=== PATIENT | male | born 1965 | race Caucasian/White ===

== ENCOUNTER 2019-07-15 11:40 | Emergency (ER) | payer BC, OTHER ==
[2019-07-15] MEDS ORDERED: MAG HYDROX/AL HYDROX/SIMETH SUSP 30 ML UDCUP PO ONE (11:58)
[2019-07-15] MEDS ORDERED: LIDOCAINE 2% VISCOUS SOLN 20 ML UDCUP PO ONE (11:58)
[2019-07-15] MEDS ORDERED: ASPIRIN 81 MG TABLET, CHEWABLE PO ONE (11:58)
--- NOTE | 2019-07-15 12:00 | ER Document Report ---
ED Medical Screen (RME) - General Chief Complaint: Chest Pain Stated Complaint: CHEST PAIN Time Seen by Provider: 07/15/19 11:55 Mode of Arrival: Ambulatory Information source: Patient Notes: Patient presents complaining of chest and epigastric pain that started yesterday evening around 10 PM. Patient complains of occasional difficulty breathing as well as some belching. Patient denies any nausea or vomiting. Patient does report a history of high cholesterol. I have greeted and performed a rapid initial assessment of this patient. A comprehensive ED assessment and evaluation of the patient, analysis of test results and completion of the medical decision making process will be conducted by additional ED providers. - Related Data Allergies/Adverse Reactions: No Known Allergies Allergy (Unverified 07/15/19 11:42) Physical Exam - Vital signs Vitals: Temp Pulse Resp BP Pulse Ox 97.8 F 72 16 148/83 H 98 07/15/19 11:50 07/15/19 11:50 07/15/19 11:50 07/15/19 11:50 07/15/19 11:50 - General Notes: Epigastric tenderness with palpation - Cardiovascular Rhythm: Regular Heart sounds: S1 appreciated, S2 appreciated Course - Vital Signs Vital signs: Temp Pulse Resp BP Pulse Ox 97.8 F 72 16 148/83 H 98 07/15/19 11:50 07/15/19 11:50 07/15/19 11:50 07/15/19 11:50 07/15/19 11:50
[2019-07-15 12:47] LABS: ABSOLUTE EOSINOPHILS # (AUTO) 0.2 10^3/uL (0.0-0.6); ABSOLUTE LYMPHOCYTES (AUTO) 1.6 10^3/uL (0.5-4.7); ABSOLUTE MONOCYTES (AUTO) 0.5 10^3/uL (0.1-1.4); ABSOLUTE NEUT (AUTO) 3.6 10^3/uL (1.7-8.2); BASOPHILS % (AUTO) 0.3 % (0-2); EOSINOPHILS % (AUTO) 4.2 % (0-6); HEMATOCRIT 43.6 % (37.9-51.0); HEMOGLOBIN 15.6 g/dL (13.5-17.0); LYMPHOCYTES % (AUTO) 26.6 % (13-45); MEAN CORPUSCULAR HEMOGLOBIN 32.2 pg (27.0-33.4); MEAN CORPUSCULAR HGB CONC 35.7 g/dL (32.0-36.0); MEAN CORPUSCULAR VOLUME 90 fl (80-97); MONOCYTES % (AUTO) 8.4 % (3-13); PLATELET COUNT 206 10^3/uL (150-450); RED BLOOD COUNT 4.84 10^6/uL (4.35-5.55); SEGMENTED NEUTROPHILS % (AUTO) 60.5 % (42-78); TOTAL CELLS COUNTED % (AUTO) 100 %
--- NOTE | 2019-07-15 12:57 | RADIOLOGY REPORT (SQ) ---
EXAM DESCRIPTION: CHEST 2 VIEWS COMPLETED DATE/TIME: 07/15/2019 12:46 pm REASON FOR STUDY: cp, epig pain COMPARISON: None. EXAM PARAMETERS: NUMBER OF VIEWS: two views TECHNIQUE: Digital Frontal and Lateral radiographic views of the chest acquired. RADIATION DOSE: NA LIMITATIONS: none FINDINGS: LUNGS AND PLEURA: No opacities, masses or pneumothorax. No pleural effusion. MEDIASTINUM AND HILAR STRUCTURES: No masses or contour abnormalities. HEART AND VASCULAR STRUCTURES: Heart normal size. No evidence for failure. BONES: No acute findings. HARDWARE: None in the chest. OTHER: No other significant finding. IMPRESSION: NO ACUTE RADIOGRAPHIC FINDING IN THE CHEST. TECHNICAL DOCUMENTATION: JOB ID: [id number] [employer]- All Rights Reserved Reading location - IP/workstation name: [email or web address]
[2019-07-15 13:05] LABS: ALBUMIN 4.9 g/dL (3.5-5.0); ALKALINE PHOSPHATASE 51 U/L (38-126); ANION GAP 12 (5-19); ASPARTATE AMINO TRANSFERASE 26 U/L (17-59); BILIRUBIN,DIRECT 0.2 mg/dL (0.0-0.4); BILIRUBIN,TOTAL 1.4 mg/dL (0.2-1.3); BLOOD UREA NITROGEN 13 mg/dL (7-20); CARBON DIOXIDE 24 mmol/L (22-30); CHLORIDE 104 mmol/L (98-107); GLUCOSE 103 mg/dL (75-110); POTASSIUM 4.2 mmol/L (3.6-5.0); TOTAL PROTEIN 7.6 g/dL (6.3-8.2)
[2019-07-15] MEDS ORDERED: NITROGLYCERIN 2% OINTMENT 1 GM PACKET TP ONE (15:14)
--- NOTE | 2019-07-15 17:49 | PDOC CONSULTATION ---
Consultation Consult Date: 07/15/19 Provider Consulted: ARGENIS GALO Consult reason:: Atypical chest pain History of Present Illness Admission Date/PCP: RICKEY LOREDO NP Patient complains of: atypical chest pain History of Present Illness: CARSON MEIER is a 53 year old male with a past medical history significant for hyperlipidemia, and daily cigar use who presented to the emergency department today with a complaint of atypical chest pain. The patient reports that he had sudden onset of epigastric abdominal discomfort, described as tightness, radiating to his back and associated with belching that began while at rest yesterday evening. He reports that the pain lasted approximately 30 minutes and began to massimo after taking an [id number] antacid medication. Patient reports that he slept well overnight without additional discomfort but while at work today symptoms reoccurred. Patient states that he was, again, sitting and at rest, though under emotional stress at work and the symptoms reoccurred. He reports that the pain was exactly the same as the previous night, epigastric, occasionally radiates to his back, and associated with belching. The patient does endorse anxiety with his discomfort; states that he thought today he may have been having a "panic attack." Patient reports that he immediately presented to the emergency department due to his discomfort. He states that the pain resolved following treatment with Nitroglycerin SL tab and a GI cocktail. He is currently pain free and interested in discharge to home. Past Medical History Cardiac Medical History: Reports: Hyperlipidema Denies: Coronary Artery Disease, Myocardial Infarction, Hypertension Pulmonary Medical History: Reports: None EENT Medical History: Reports: None Neurological Medical History: Reports: None Endocrine Medical History: Reports: None Renal/ Medical History: Reports: None Malignancy Medical History: Reports: None GI Medical History: Reports: Gastroesophageal Reflux Disease Musculoskeltal Medical History: Reports: None Skin Medical History: Reports: None Psychiatric Medical History: Reports: Tobacco Dependency Traumatic Medical History: Reports: None Hematology: Reports: None Infectious Medical History: Reports: None Past Surgical History Past Surgical History: Reports: Tonsillectomy Social History Information Source: Patient Lives with: Family Smoking Status: Current Every Day Smoker Cigars Per Day: 1 Frequency of Alcohol Use: Rare Hx Recreational Drug Use: No Drugs: None Hx Prescription Drug Abuse: No - Advance Directive Resuscitation Status: Full Code Family History Family History: DM, Hypertension Parental Family History Reviewed: Yes Children Family History Reviewed: Yes Sibling(s) Family History Reviewed.: Yes Medication/Allergy Allergies/Adverse Reactions: No Known Allergies Allergy (Unverified 07/15/19 11:42) Review of Systems Constitutional: ABSENT: chills, fever(s), headache(s), weight gain, weight loss Eyes: ABSENT: visual disturbances Ears: ABSENT: hearing changes Cardiovascular: PRESENT: as per HPI Respiratory: ABSENT: cough, hemoptysis Gastrointestinal: PRESENT: as per HPI, abdominal pain, heartburn. ABSENT: constipation, diarrhea, hematemesis, hematochezia, nausea, vomiting Genitourinary: ABSENT: dysuria, hematuria Musculoskeletal: ABSENT: joint swelling Integumentary: ABSENT: rash, wounds Neurological: ABSENT: abnormal gait, abnormal speech, confusion, dizziness, focal weakness, syncope Psychiatric: ABSENT: anxiety, depression, homidical ideation, suicidal ideation Endocrine: ABSENT: cold intolerance, heat intolerance, polydipsia, polyuria Hematologic/Lymphatic: ABSENT: easy bleeding, easy bruising Physical Exam Vital Signs: Temp Pulse Resp BP Pulse Ox 97.8 F 72 16 148/83 H 98 07/15/19 11:50 07/15/19 11:50 07/15/19 11:50 07/15/19 11:50 07/15/19 11:50 Intake & Output 07/14/19 07/15/19 07/16/19 06:59 06:59 06:59 Weight 77.4 kg General appearance: PRESENT: no acute distress, cooperative, well-developed, well-nourished Head exam: PRESENT: atraumatic, normocephalic Eye exam: PRESENT: conjunctiva pink, EOMI, PERRLA. ABSENT: scleral icterus Ear exam: PRESENT: normal external ear exam Mouth exam: PRESENT: moist, tongue midline Neck exam: ABSENT: carotid bruit, JVD, lymphadenopathy, thyromegaly Respiratory exam: PRESENT: clear to auscultation monique, symmetrical, unlabored. ABSENT: rales, rhonchi, wheezes Cardiovascular exam: PRESENT: RRR, +S1, +S2. ABSENT: diastolic murmur, rubs, systolic murmur Pulses: PRESENT: normal dorsalis pedis pul Vascular exam: PRESENT: normal capillary refill GI/Abdominal exam: PRESENT: normal bowel sounds, soft. ABSENT: distended, guarding, mass, organolmegaly, rebound, tenderness Rectal exam: PRESENT: deferred Extremities exam: PRESENT: full ROM. ABSENT: calf tenderness, clubbing, pedal edema Neurological exam: PRESENT: alert, awake, oriented to person, oriented to place, oriented to time, oriented to situation, CN II-XII grossly intact. ABSENT: motor sensory deficit Psychiatric exam: PRESENT: appropriate affect, normal mood. ABSENT: homicidal ideation, suicidal ideation Skin exam: PRESENT: dry, intact, warm. ABSENT: cyanosis, rash Results Laboratory Results: 07/15/19 12:25 07/15/19 12:25 07/15/19 07/15/19 12:25 12:25 WBC 6.0 RBC 4.84 Hgb 15.6 Hct 43.6 MCV 90 MCH 32.2 MCHC 35.7 RDW 13.0 Plt Count 206 Seg Neutrophils % 60.5 Lymphocytes % 26.6 Monocytes % 8.4 Eosinophils % 4.2 Basophils % 0.3 Absolute Neutrophils 3.6 Absolute Lymphocytes 1.6 Absolute Monocytes 0.5 Absolute Eosinophils 0.2 Absolute Basophils 0.0 Sodium 140.3 Potassium 4.2 Chloride 104 Carbon Dioxide 24 Anion Gap 12 BUN 13 Creatinine 0.87 Est GFR ( Amer) > 60 Est GFR (Non-Af Amer) > 60 Glucose 103 Calcium 10.0 Total Bilirubin 1.4 H AST 26 Alkaline Phosphatase 51 Total Protein 7.6 Albumin 4.9 Lipase 56.6 07/15/19 07/15/19 12:25 15:15 Troponin I < 0.012 < 0.012 Impressions: Chest X-Ray 07/15/19 11:58 IMPRESSION: NO ACUTE RADIOGRAPHIC FINDING IN THE CHEST. Assessment and Plan - Diagnosis (1) Atypical chest pain Is this a current diagnosis for this admission?: Yes Plan: Patient presented to the emergency department with atypical chest discomfort described as epigastric tightness, occasionally radiating to his back, associated with dyspepsia and belching that was relieved by OTC antacid medication. Chest x-ray is benign. EKG demonstrates normal sinus rhythm without ischemic changes. Troponins are negative x2. Heart score of 3 (Age, HLD, Tobacco, Family Hx). Discussed with patient that chest pain rule out procedure includes obtaining 3 negative troponins followed by stress testing to determine need for cardiac catheterization. Patient was advised that stress testing is not available at our facility until Thursday and that patient's similar to him with a low heart scores and two negative troponins are typically discharged to home with cardiology follow-up to schedule outpatient stress testing. The patient understood and was satisfied with this recommendation. The patient was encouraged to return to the emergency department as needed for recurrent chest pain, especially if worsened, persistent, increased by activity or with associated symptoms of shortness of breath, diaphoresis, nausea, etc. H e was assured that he would not be treated poorly of if he re-presented for concerning chest pain symptoms. Recommend discharge to home with referral to cardiology for outpatient stress testing. (2) Epigastric abdominal pain Is this a current diagnosis for this admission?: Yes Plan: Patient endorses epigastric abdominal discomfort, described as tightness, occasionally radiating to his back and associated with dyspepsia and belching. Patient reports that his symptoms resolved last night after taking an [id number] antacid and again today after presenting to the emergency department when he was provided both a sublingual nitroglycerin tab and GI cocktail. He denies history of gallstones or pancreatitis. Denies frequent alcohol use. WBCs are normal and abdomen is benign on exam. Total bilirubin is elevated to 1.4 but all other LFTs are normal. Lipase 56.6. Would recommend considering abdominal ultrasound to evaluate for gallbladder disease as potential cause of the patient's epigastric and atypical chest disc omfort. (3) Hyperlipidemia Is this a current diagnosis for this admission?: Yes Plan: Continue home dose statin therapy. (4) Tobacco dependence Is this a current diagnosis for this admission?: Yes Plan: Smoking cessation encouraged. - Time Time Spent with patient: 35 or more minutes
[2019-07-15 18:43] VITALS: BP 114/85
--- NOTE | 2019-07-16 10:19 | EKG REPORT ---
SEVERITY:- BORDERLINE ECG - SINUS RHYTHM BORDERLINE T ABNORMALITIES, ANT-LAT LEADS : Confirmed by: Amrita Garcia 16-Jul-2019 10:18:31
--- NOTE | 2019-07-16 10:19 | EKG REPORT ---
SEVERITY:- NORMAL ECG - SINUS RHYTHM : Confirmed by: Amrita Garcia 16-Jul-2019 10:18:20
--- NOTE | 2019-07-16 16:58 | ER Document Report ---
Entered by DIONNE DAVALOS SCRIBE 07/15/19 [id number] Acting as scribe for:LORETA RENEE DO ED Cardiac - General Chief Complaint: Chest Pain Stated Complaint: CHEST PAIN Time Seen by Provider: 07/15/19 11:55 Primary Care Provider: RICKEY LOREDO NP [Primary Care Provider] - Follow up tomorrow JOAO GRIMM MD [ACTIVE STAFF] - Follow up tomorrow (Please call the air brake adjuster at his office or [phone]) Mode of Arrival: Ambulatory Information source: Patient Notes: Patient is a 53-year-old male with hyperlipidemia that presents to the emergency department today for complaints of chest pain described as "pressure" which began yesterday at 2200. Patient states that he was getting ready to go to bed when this pain began last night. Patient states that he was sitting down in his recliner, he began feeling diaphoretic, and then this pressure started shortly after. Patient states the pressure eventually subsided and he got to sleep last night. Patient states when he woke up this morning he felt seemingly normal so he went about his day as he normally would. Patient states about 30 minutes after getting moving this morning he developed this same chest pressure again. Patient states he went to work and his chest pain became much worse after getting to work. Patient states that he feels like the aspirin and nitroglycerin he has received seemed to relieve his symptoms somewhat but they have since come back. Patient does mention dyspnea on exertion. Patient states he has a positive family history of cardiac disease including his grandfather and father both having MIs while in their 50s. Patient denies any nausea or recent cardiac stress test. - Related Data Allergies/Adverse Reactions: No Known Allergies Allergy (Unverified 07/15/19 11:42) Past Medical History - General Information source: Patient - Social History Smoking Status: Current Every Day Smoker Cigarette use (# per day): Yes Frequency of alcohol use: None Drug Abuse: None Lives with: Family Family History: CAD, Hyperlipidemia Patient has suicidal ideation: No Patient has homicidal ideation: No - Past Medical History Cardiac Medical History: Reports: Hx Hypercholesterolemia Review of Systems - Review of Systems Constitutional: See HPI, Diaphoresis EENT: No symptoms reported Cardiovascular: See HPI, Chest pain Respiratory: See HPI, Short of breath Gastrointestinal: denies: Nausea Genitourinary: No symptoms reported Male Genitourinary: No symptoms reported Musculoskeletal: No symptoms reported Skin: No symptoms reported Hematologic/Lymphatic: No symptoms reported Neurological/Psychological: No symptoms reported -: Yes All other systems reviewed and negative Physical Exam - Vital signs Vitals: Temp Pulse Resp BP Pulse Ox 97.8 F 72 16 148/83 H 98 07/15/19 11:50 07/15/19 11:50 07/15/19 11:50 07/15/19 11:50 07/15/19 11:50 Interpretation: Hypertensive - General General appearance: Appears well, Alert - HEENT Head: Normocephalic, Atraumatic Eyes: Normal Pupils: PERRL - Respiratory Respiratory status: No respiratory distress Chest status: Nontender Breath sounds: Normal Chest palpation: Normal - Cardiovascular Rhythm: Regular Heart sounds: Normal auscultation Murmur: No - Abdominal Inspection: Normal Distension: No distension Bowel sounds: Normal Tenderness: Nontender Organomegaly: No organomegaly - Back Back: Normal, Nontender - Extremities General upper extremity: Normal inspection, Nontender, Normal color, Normal ROM, Normal temperature General lower extremity: Normal inspection, Nontender, Normal color, Normal ROM, Normal temperature, Normal weight bearing. No: Cynthia's sign - Neurological Neuro grossly intact: Yes Cognition: Normal Orientation: AAOx4 Darlene Coma Scale Eye Opening: Spontaneous Upham Coma Scale Verbal: Oriented Upham Coma Scale Motor: Obeys Commands Darlene Coma Scale Total: 15 Speech: Normal Motor strength normal: LUE, RUE, LLE, RLE Sensory: Normal - Psychological Associated symptoms: Normal affect, Normal mood - Skin Skin Temperature: Warm Skin Moisture: Dry Skin Color: Normal Course - Re-evaluation Re-evalutation: 07/15/19 15:00 Dr. Navarro contacted about this patient. Discussed patient's heart score of 5. Does not recommend transfer at this time. Agrees with admission to telemetry observation. 15:30 Discussed with hospitalist. Believes patient can go home. Patient is a 53-year-old male with a history of hyperlipidemia and smoking as well as a positive family history who comes in today complaining of chest pain while at rest with associated diaphoresis. Discussed with cardiology who initially recommended keeping the patient for observation but did not feel that he needed to be transferred. Patient was still having pain in the emergency department so nitroglycerin patch was applied. Patient's symptoms resolved with nitroglycerin. He received aspirin. Hospitalist service was contacted and due to lack of stress test available over the weekend, they prefer to send the patient home and have him follow-up with cardiology on Thursday. Patient has had 2 EKGs with no acute changes. Troponin is negative x2 and has been at least 4 hours from onset of symptoms. I discussed this patient at length with the hospitalist, air brake adjuster, patient and his family. He has a HEART score of 5, and I am concerned about him going home. Patient is agreeable to going home and assures me that he will call the air brake adjuster for follow-up on Thursday. Spoke again with Dr. Navarro who is agreeable to this plan. Stable for discharge. Patient has also been contacted. He is to return immediately if he has any worsening concerns or symptoms. Understands and agrees with this plan. - Vital Signs Vital signs: Temp Pulse Resp BP Pulse Ox 97.8 F 72 17 114/85 98 07/15/19 11:50 07/15/19 11:50 07/15/19 18:29 07/15/19 18:29 07/15/19 18:29 - Laboratory Result Diagrams: 07/15/19 12:25 07/15/19 12:25 Laboratory results interpreted by me: 07/15/19 12:25 Total Bilirubin 1.4 H - Diagnostic Test Radiology reviewed: Reports reviewed - EKG Interpretation by Me EKG shows normal: Sinus rhythm Rate: Normal Rhythm: NSR When compared to previous EKG there are: No significant change Discharge - Discharge Clinical Impression: Chest pain Qualifiers: Chest pain type: unspecified Qualified Code(s): R07.9 - Chest pain, unspecified Condition: Stable Disposition: HOME, SELF-CARE Instructions: Chest Pain of Unclear Cause ([facility]) Additional Instructions: Your symptoms are still concerning for heart disease. Please call [phone] and return to the emergency department immediately if you experience chest pain. Please call Thursday to schedule an outpatient stress test. Forms: Smoking Cessation Education, Return to Work Referrals: RICKEY LOREDO NP [Primary Care Provider] - Follow up tomorrow JOAO GRIMM MD [ACTIVE STAFF] - Follow up tomorrow (Please call the air brake adjuster at his office or [phone]) Scribe Attestation: 07/16/19 16:58 I personally performed the services described in the documentation, reviewed and edited the documentation which was dictated to the scribe in my presence, and it accurately records my words and actions. I personally performed the services described in the documentation, reviewed and edited the documentation which was dictated to the scribe in my presence, and it accurately records my words and actions.
== END 2019-07-15 18:43 | disposition home or self-care (01) ==
LOC: ER 11:40
DX: R07.89 Other chest pain (principal); R10.13 Epigastric pain; R61 Generalized hyperhidrosis; R11.0 Nausea; F17.210 Nicotine dependence, cigarettes, uncomplicated; E78.5 Hyperlipidemia, unspecified; E78.00 Pure hypercholesterolemia, unspecified
CPT/HCPCS: 93005; 99285; 36415; 83690; 85025; 80053; 84484; 71046; 93010; J3490